=== PATIENT | female | born 1990 | race Caucasian/White ===

== ENCOUNTER 2017-06-03 13:07 | Observation (INO) ==
[2017-06-03 14:00] LABS: Basophils % 0.4 %; Eosinophils % 1.8 %; Hematocrit 40.8 % (35.3-44.9); Hemoglobin 13.3 g/dL (11.5-15.4); Immature Granulocytes % 0.3 % (0-4); Lymphocytes % 17.5 %; Mean Corpuscular HGB Conc 32.6 g/dL (31.6-35.5); Mean Corpuscular Hemoglobin 30.3 pg (28.0-33.3); Mean Corpuscular Volume 92.9 fL (83.0-100.0); Mean Platelet Volume 9.8 fL (9.4-12.4); Monocytes % 6.7 %; Platelet Count 214 K/mcL (140-400); Red Blood Count 4.39 M/mcL (3.82-4.97); Red Cell Distribution Width 12.1 % (11.5-14.5); Segmented Neutrophils % 73.3 %
[2017-06-03 14:01] LABS: Eosinophils # 0.2 K/mcL (0.0-0.6); Lymphocytes # 1.7 K/mcL (0.6-4.6); Monocytes # 0.7 K/mcL (0.0-1.3); Neutrophils # 7.1 K/mcL (1.6-8.9)
[2017-06-03 14:11] LABS: Alanine Aminotransferase 10 Units/L (0-55); Albumin 3.6 g/dL (3.5-5.0); Alkaline Phosphatase 79 Units/L (38-126); Aspartate Amino Transferase 12 Units/L (5-34); BUN/Creatinine Ratio 16 (6-26); Bilirubin,Direct 0.3 mg/dL (0.0-0.5); Bilirubin,Indirect 0.3 mg/dL (0.0-1.2); Bilirubin,Total 0.6 mg/dL (0.2-1.2); Blood Urea Nitrogen 12 mg/dL (7-20); Calcium 9.3 mg/dL (8.6-10.8); Carbon Dioxide 27 mEq/L (19-29); Chloride 103 mEq/L (98-109); Glucose 112 mg/dL (70-99); Osmolality,Calculated 287 (280-300); Potassium 3.4 mEq/L (3.5-4.5); Sodium 138 mEq/L (136-145); Total Protein 7.2 g/dL (6.0-8.3); eGFR For African Americans > 60 (> 60); eGFR For Non-African Americans > 60 (> 60)
[2017-06-03 14:12] LABS: Globulin 3.6 g/dL (2.4-3.5); Lipase 34 Units/L (8-78)
[2017-06-03 14:29] LABS: Bilirubin,Urine Negative (Negative); Blood,Urine Negative (Negative); Clarity,Urine Clear (Clear); Color,Urine Yellow (Yellow); Glucose,Urine (UA) Normal (Normal); Ketones,Urine Negative (Negative); Leukocyte Esterase,Urine Negative (Negative); Nitrite,Urine Negative (Negative); PH,Urine 7.5 pH Units (5.0-8.0); Protein,Urine Negative (Neg-Trace); Specific Gravity,Urine 1.011 (1.010-1.025); Urobilinogen,Urine Normal (Normal)
[2017-06-03] MEDS ORDERED: *HR* OxyCODONE/APAP 5/325 TABLET PO ONE (16:04)
--- NOTE | 2017-06-03 16:04 | Emergency Department Note ---
Disposition Clinical Impression: Acute appendicitis Disposition: Admitted As Inpatient Referrals: Eric Rojas MD [Primary Care Provider] - Forms: ED Satisfaction Letter, Work/School Release General Adult HPI - General Chief complaint: ED Abdominal Pain Stated complaint: RLQ pain Time Seen by Provider: 06/03/17 15:19 Source: patient Limitations: no limitations - History of Present Illness HPI Narrative: 26-year-old female reports emergency department complaining of right lower abdominal pain. The patient denies any vaginal discharge or bleeding. She has not ED and placed denies . There is no history of trauma. She has had some slight back pain as well. No blood in urine no previous history of kidney stones no previous abdominal surgery. The patient denies any fever vomiting or diarrhea. She is currently not anticoagulated. No chest pain shortness of breath or spinal pain. No bowel or bladder dysfunction or weakness in arms or legs. The patient has no history of ovarian cysts or previous pelvic infections. The patient has increasing pain over the last day or so. She describes right lower abdominal pain. Pain Scale: 5 - Related Data Home Medications Medication Instructions Recorded Confirmed ALPRAZolam [Xanax 0.5 MG Tablet] 0.5 mg PO DAILY PRN 06/03/17 06/03/17 Dextroamphetamine/Amphetamine 10 mg PO QPM 06/03/17 06/03/17 [Adderall 10 mg Tablet] Dextroamphetamine/Amphetamine 20 mg PO QAM 06/03/17 06/03/17 [Adderall 10 mg Tablet] Allergies Allergy/AdvReac Type Severity Reaction Status Date / Time No Known Allergies Allergy Verified 06/03/17 13:18 All systems ED: reviewed and negative except as stated. Past Medical History - Past Medical History Medical history: Reports: no medical history Psychiatric history: Reports: anxiety - Social History Smoking Status: Never smoker Smokeless Tobacco Status: No Alcohol use: Reports: rarely Drug use: Reports: none Physical Exam - General Limitations: no limitations General appearance: alert, in no apparent distress - Head Head exam: atraumatic, normocephalic, normal inspection - Eye Eye exam: Present: normal appearance, PERRL, EOMI. Absent: scleral icterus, conjunctival injection, nystagmus, miosis, mydriasis, periorbital swelling - ENT ENT exam: normal exam, normal oropharynx, mucous membranes moist, TM's normal bilaterally, normal external ear exam - Neck Neck exam: Present: normal inspection, full ROM, trachea midline. Absent: tenderness - Chest Chest inspection: Present: symmetric chest wall rise. Absent: tenderness - Respiratory Respiratory exam: Present: normal lung sounds bilaterally. Absent: respiratory distress, wheezes, stridor, accessory muscle use, prolonged expiratory phase - Cardiovascular Cardiovascular exam: Present: regular rate, normal rhythm, normal heart sounds - Abdominal Exam Abdominal exam: Present: soft, tenderness, tenderness at McBurney's Point. Absent: distention, guarding, rebound, rigidity, normal bowel sounds, Daniels's sign, Rovsing's sign Abdominal tenderness: Present: RLQ, moderate - Extremities Exam Extremities exam: Present: normal inspection, full ROM. Absent: tenderness, normal capillary refill, pedal edema, joint swelling, calf tenderness - Expanded Lower Extremity Exam Neurovascular/Tendon exam: Present: normal capillary refill. Absent: motor deficit, sensory deficit, tendon deficit, extremity cold to touch, pallor - Back Exam Back exam: Present: normal inspection, full ROM, CVA tenderness (R). Absent: tenderness, CVA tenderness (L), vertebral tenderness - Neurological Exam Neurological exam: Present: alert, oriented X3, CN II-XII intact. Absent: motor sensory deficit - Psychiatric Psychiatric exam: Present: normal affect, normal mood - Skin Skin exam: Present: warm, dry, intact, normal color. Absent: rash, cyanosis, diaphoresis, erythema, pallor, mottled Course Vital Signs Temperature 98 F 06/03/17 13:13 Pulse Rate 98 06/03/17 13:13 Respiratory Rate 16 06/03/17 13:13 Blood Pressure 142/97 06/03/17 13:13 O2 Sat by Pulse Oximetry 93 06/03/17 13:13 Temperature 98 F 06/03/17 13:13 Pulse Rate 98 06/03/17 13:13 Respiratory Rate 16 06/03/17 13:13 Blood Pressure 142/97 06/03/17 13:13 O2 Sat by Pulse Oximetry 06/03/17 13:13 Oxygen Delivery Oxygen Delivery Room Air Medical Decision Making - MDM Narrative Medical decision making narrative: The patient describes right lower abdominal pain, she has tenderness not area, CT scan reveals what is reported as acute appendicitis. Based on the patient's clinical history, clinical examination, and abnormal CT findings suggestive of appendicitis I have consulted the surgeon on-call who is here to evaluate the patient. - Lab Data Lab results reviewed: Yes I reviewed the patient's lab results. Result diagrams: 06/03/17 13:50 06/03/17 13:50 Lab Results 06/03/17 06/03/17 06/03/17 Range/Units 13:50 13:50 14:07 WBC 9.7 (4.3-11.1) K/mcL RBC 4.39 (3.82-4.97) M/mcL Hgb 13.3 (11.5-15.4) g/dL Hct 40.8 (35.3-44.9) % MCV 92.9 (83.0-100.0) fL MCH 30.3 (28.0-33.3) pg MCHC 32.6 (31.6-35.5) g/dL RDW 12.1 (11.5-14.5) % Plt Count 214 (140-400) K/mcL MPV 9.8 (9.4-12.4) fL Immature Gran % 0.3 (0-4) % Seg Neutrophils % 73.3 % Lymphocytes % 17.5 % Monocytes % 6.7 % Eosinophils % 1.8 % Basophils % 0.4 % Neutrophils # 7.1 (1.6-8.9) K/mcL Lymphocytes # 1.7 (0.6-4.6) K/mcL Monocytes # 0.7 (0.0-1.3) K/mcL Eosinophils # 0.2 (0.0-0.6) K/mcL Basophils # 0.0 (0.0-0.2) K/mcL Sodium 138 (136-145) mEq/L Potassium 3.4 L (3.5-4.5) mEq/L Chloride 103 (98-109) mEq/L Carbon Dioxide 27 (19-29) mEq/L BUN 12 (7-20) mg/dL Creatinine 0.76 (0.57-1.11) mg/dL Est GFR ( Amer) > 60 (> 60) Est GFR (Non-Af Amer) > 60 (> 60) BUN/Creatinine Ratio 16 (6-26) Glucose 112 H (70-99) mg/dL Calculated Osmolality 287 (280-300) Calcium 9.3 (8.6-10.8) mg/dL Total Bilirubin 0.6 (0.2-1.2) mg/dL Direct Bilirubin 0.3 (0.0-0.5) mg/dL Indirect Bilirubin 0.3 (0.0-1.2) mg/dL AST 12 (5-34) Units/L ALT 10 (0-55) Units/L Alkaline Phosphatase 79 (38-126) Units/L Serum Total Protein 7.2 (6.0-8.3) g/dL Albumin 3.6 (3.5-5.0) g/dL Globulin 3.6 H (2.4-3.5) g/dL Albumin/Globulin Ratio 1.0 L (1.1-2.2) Lipase 34 (8-78) Units/L Urine Color Yellow (Yellow) Urine Clarity Clear (Clear) Urine pH 7.5 (5.0-8.0) pH Units Ur Specific [place] 1.011 (1.010-1.025) Urine Protein Negative (Neg-Trace) mg/dL Urine Glucose (UA) Normal (Normal) mg/dL Urine Ketones Negative (Negative) mg/dL Urine Blood Negative (Negative) Urine Nitrite Negative (Negative) Urine Bilirubin Negative (Negative) Urine Urobilinogen Normal (Normal) mg/dL Ur Leukocyte Esterase Negative (Negative) Ur Culture Indicated? NO (NO) Urine Test (Negative) 06/03/17 Range/Units 14:07 WBC (4.3-11.1) K/mcL RBC (3.82-4.97) M/mcL Hgb (11.5-15.4) g/dL Hct (35.3-44.9) % MCV (83.0-100.0) fL MCH (28.0-33.3) pg MCHC (31.6-35.5) g/dL RDW (11.5-14.5) % Plt Count (140-400) K/mcL MPV (9.4-12.4) fL Immature Gran % (0-4) % Seg Neutrophils % % Lymphocytes % % Monocytes % % Eosinophils % % Basophils % % Neutrophils # (1.6-8.9) K/mcL Lymphocytes # (0.6-4.6) K/mcL Monocytes # (0.0-1.3) K/mcL Eosinophils # (0.0-0.6) K/mcL Basophils # (0.0-0.2) K/mcL Sodium (136-145) mEq/L Potassium (3.5-4.5) mEq/L Chloride (98-109) mEq/L Carbon Dioxide (19-29) mEq/L BUN (7-20) mg/dL Creatinine (0.57-1.11) mg/dL Est GFR ( Amer) (> 60) Est GFR (Non-Af Amer) (> 60) BUN/Creatinine Ratio (6-26) Glucose (70-99) mg/dL Calculated Osmolality (280-300) Calcium (8.6-10.8) mg/dL Total Bilirubin (0.2-1.2) mg/dL Direct Bilirubin (0.0-0.5) mg/dL Indirect Bilirubin (0.0-1.2) mg/dL AST (5-34) Units/L ALT (0-55) Units/L Alkaline Phosphatase (38-126) Units/L Serum Total Protein (6.0-8.3) g/dL Albumin (3.5-5.0) g/dL Globulin (2.4-3.5) g/dL Albumin/Globulin Ratio (1.1-2.2) Lipase (8-78) Units/L Urine Color (Yellow) Urine Clarity (Clear) Urine pH (5.0-8.0) pH Units Ur Specific [place] (1.010-1.025) Urine Protein (Neg-Trace) mg/dL Urine Glucose (UA) (Normal) mg/dL Urine Ketones (Negative) mg/dL Urine Blood (Negative) Urine Nitrite (Negative) Urine Bilirubin (Negative) Urine Urobilinogen (Normal) mg/dL Ur Leukocyte Esterase (Negative) Ur Culture Indicated? (NO) Urine Test Negative (Negative) - Radiology Data Radiology results reviewed: Yes I reviewed the patient's radiology results.
--- NOTE | 2017-06-03 19:00 | General Surg History&Physical ---
Date of Encounter: 06/03/17 Time of Encounter: 18:57 Assessment and Plan (1) Acute appendicitis Current Visit: Yes Status: Acute 26yof with one day history of worsening back pain with TTP at McBurney's point and CT demonstrating inflammatory reaction at the appendix, consistent with acute appendicitis; - NPO -IVF: D5LR @ 125 - abx: zosyn - consent for lap appy - admit pain control: percocet, tramadol dvt prophylaxis activity as tolerated diet as tolerated after surgery resume home meds vitals, I/Os q4hrs The assessment and plan as outlined above was discussed with the patient and/or family members who expressed understanding and agreement. All questions were answered. Qualifiers: Acute appendicitis type: with localized peritonitis Qualified Code(s): K35.3 - Acute appendicitis with localized peritonitis (2) Right lower quadrant abdominal pain Current Visit: Yes Status: Acute see plan above The assessment and plan as outlined above was discussed with the patient and/or family members who expressed understanding and agreement. All questions were answered. (3) Back pain Current Visit: Yes Status: Acute likely due to positioning of appendix; see plan above The assessment and plan as outlined above was discussed with the patient and/or family members who expressed understanding and agreement. All questions were answered. Qualifiers: Back pain location: low back pain Chronicity: acute Back pain laterality : right Sciatica presence: without sciatica Qualified Code(s): M54.5 - Low back pain History of Present Illness Chief complaint: back pain HPI: Ms. Mendoza is a 26 year old female with a PMH significant for anxiety and ADHD who presents with a 1 day history of lower, right sided back pain. The pain is non radiating with no identifiable alleviating or exacerbating factors. No associated fevers chills or nausea or vomiting. The patient is still able to tolerate a diet and bowel function. Due to the worsening pain the patient decided to present to the emergency room for further evaluation. Per the medicine department staff the patient was tender on the right side of her abdomen which prompted a concern for acute appendicitis. Surgery was counseled for further management recommendations. Past Med Surg Social Fam HX - Past Medical History Medical history: no medical history Psychiatric history: anxiety, ADHD - Past Surgical History Surgical History: other (Surgery on Left arm due to fracture) - Social History Smoking Status: Never smoker Smokeless Tobacco Status: No Alcohol use: rarely Drug use: none Current living situation: Home Activity Level: Independent ambulation - Additional Family History Additional family history: non contributory Medications and Allergies ALPRAZolam [Xanax 0.5 MG Tablet] 0.5 mg PO DAILY PRN 06/03/17 [History] Dextroamphetamine/Amphetamine [Adderall 10 mg Tablet] 10 mg PO QPM 06/03/17 [ History] Dextroamphetamine/Amphetamine [Adderall 10 mg Tablet] 20 mg PO QAM 06/03/17 [ History] 3 Allergy/AdvReac Type Severity Reaction Status Date / Time No Known Allergies Allergy Verified 06/03/17 13:18 Review of Systems All systems PM: reviewed and no additional remarkable complaints except as stated All systems PM: A 10-system review of systems was performed and is negative for pertinent findings except as documented above in the HPI. General Surgery Exam Initial Vital Signs Temp Pulse Resp BP Pulse Ox 98 F 98 16 142/97 93 06/03/17 13:13 06/03/17 13:13 06/03/17 13:13 06/03/17 13:13 06/03/17 13:13 - General physical appearance well developed, well nourished, no distress - Eyes other (no slceral icterus) - Respiratory normal expansion, normal respiratory effort (equal chest wall expansion), clear to auscultation, other (no audible wheezes) - Cardiovascular Cardiovascular exam: Present: RRR - Abdomen Abdomen general surgery: Present: soft, tender Abdominal Tenderness: Present: RLQ Hernia: Present: none - Integumentary Integumentary general surgery: Present: warm and dry - Neurologic Present: CN 2-12 grossly intact - Musculoskeletal Present: normal gait, normal posture, other (FROM in UE/LE bilaterally) - Psychiatric Psychiatric general surgery: Present: A&Ox3, appropriate, speech is normal, aggessive Results - Labs 06/03/17 13:50 06/03/17 13:50 Abnormal lab results Potassium 3.4 mEq/L (3.5-4.5) L 06/03/17 13:50 Glucose 112 mg/dL (70-99) H 06/03/17 13:50 Globulin 3.6 g/dL (2.4-3.5) H 06/03/17 13:50 Albumin/Globulin Ratio 1.0 (1.1-2.2) L 06/03/17 13:50 Diabetes panel 06/03/17 Range/Units 13:50 Sodium 138 (136-145) mEq/L Potassium 3.4 L (3.5-4.5) mEq/L Chloride 103 (98-109) mEq/L Carbon Dioxide 27 (19-29) mEq/L BUN 12 (7-20) mg/dL Creatinine 0.76 (0.57-1.11) mg/dL Glucose 112 H (70-99) mg/dL Calcium 9.3 (8.6-10.8) mg/dL AST 12 (5-34) Units/L ALT 10 (0-55) Units/L Alkaline Phosphatase 79 (38-126) Units/L Albumin 3.6 (3.5-5.0) g/dL Calcium panel 06/03/17 Range/Units 13:50 Calcium 9.3 (8.6-10.8) mg/dL Albumin 3.6 (3.5-5.0) g/dL Pituitary panel 06/03/17 Range/Units 13:50 Sodium 138 (136-145) mEq/L Potassium 3.4 L (3.5-4.5) mEq/L Chloride 103 (98-109) mEq/L Carbon Dioxide 27 (19-29) mEq/L BUN 12 (7-20) mg/dL Creatinine 0.76 (0.57-1.11) mg/dL Glucose 112 H (70-99) mg/dL Calcium 9.3 (8.6-10.8) mg/dL Adrenal panel 06/03/17 Range/Units 13:50 Sodium 138 (136-145) mEq/L Potassium 3.4 L (3.5-4.5) mEq/L Chloride 103 (98-109) mEq/L Carbon Dioxide 27 (19-29) mEq/L BUN 12 (7-20) mg/dL Creatinine 0.76 (0.57-1.11) mg/dL Glucose 112 H (70-99) mg/dL Calcium 9.3 (8.6-10.8) mg/dL Total Bilirubin 0.6 (0.2-1.2) mg/dL AST 12 (5-34) Units/L ALT 10 (0-55) Units/L Alkaline Phosphatase 79 (38-126) Units/L Albumin 3.6 (3.5-5.0) g/dL All other labs normal. - Imaging CT scan - abdomen: report reviewed, image reviewed CT scan - pelvis: report reviewed, image reviewed (inflammation at appendix, primarily at the tip; no abscess, no free air; appears to be retrocecal)
--- NOTE | 2017-06-03 19:11 | Anesthesia Evaluation PreOp ---
Date of Encounter: 06/03/17 Time of Encounter: 19:20 - Past History Planned Operation: Lap Appendectomy Cardiac History: Denies any Significant Hx Pulmonary History: Denies Any Significant HX HUMANITIES PROFESSOR History: Denies Any Significant HX Other Medical History: Other (Anxiety ADDH) Anesthesia History: No Prior Anesthetic Complications : No Test: Negative Alcohol Use: rarely Drug use: none Medications and Allergies ALPRAZolam [Xanax 0.5 MG Tablet] 0.5 mg PO DAILY PRN 06/03/17 [History] Dextroamphetamine/Amphetamine [Adderall 10 mg Tablet] 10 mg PO QPM 06/03/17 [ History] Dextroamphetamine/Amphetamine [Adderall 10 mg Tablet] 20 mg PO QAM 06/03/17 [ History] 3 Allergy/AdvReac Type Severity Reaction Status Date / Time No Known Allergies Allergy Verified 06/03/17 13:18 - Meds/Allergy Pre-op Review Medications Reviewed: Yes Allergies Reviewed: Yes Beta Blockers on Current Med List: No Anesthesia Results - Labs 06/03/17 13:50 06/03/17 13:50 Anesthesia Exam O2 Sat Height 1.75 m Weight 78.925 kg O2 Sat by Pulse Oximetry 93 Vital Signs Temp Pulse Resp BP Pulse Ox 98 F 98 16 142/97 93 06/03/17 13:13 06/03/17 13:13 06/03/17 13:13 06/03/17 13:13 06/03/17 13:13 Height: 5'9 Weight: 174 lbs NPO (# of Hours): MN Pain Scale: 0 - HEENT Pupil (Motor): Pupils equal, EOMI Mallampati: II Teeth: Normal Oral Opening: Greater than 3 - HUMANITIES PROFESSOR LOC: Oriented HUMANITIES PROFESSOR Motor: Normal RUE, Normal LUE, Normal RLE, Normal LLE, Normal Face HUMANITIES PROFESSOR Sensory: Normal: RUE, LUE, RLE, LLE, Face - Cardiac Rhythm: Regular Murmur: None JVD: No Carotid Bruit: No - Pulmonary Breath Sounds: bilateral Clear Respiratory Effort: Symmetrical Anesthesia Assess/Plan ASA Score: 2 Modified Massiel Scale for Level of Consciousness: Cooperative, oriented, and tranquil Anesthetic Plan: General Monitoring Plan: Standard Monitors Recovery Plan: PACU (Discussed GA, agrees to proceed)
[2017-06-03] MEDS ORDERED: D5% in Lactated Ringers 1,000 ML IVC SCH ×4 (19:15→22:15)
[2017-06-03] MEDS ORDERED: Acetaminophen IV 1,000 MG/100 ML INFUS..BTL ONE (19:27)
[2017-06-03] MEDS ORDERED: Famotidine 20 MG/2 ML VIAL ONE (19:28)
[2017-06-03] MEDS ORDERED: Lidocaine -MPF 2% 2 ML VIAL ONE (19:31)
[2017-06-03] MEDS ORDERED: *HR* Midazolam HCl 2 MG/2 ML VIAL ONE (19:31)
[2017-06-03] MEDS ORDERED: *HR* FentaNYL (PF) 100 MCG/2 ML VIAL ONE (19:31)
[2017-06-03] MEDS ORDERED: Lidocaine -MPF 4% 5 ML AMPUL ONE (19:31)
[2017-06-03] MEDS ORDERED: Ondansetron 4 MG/2 ML VIAL ONE (19:31)
[2017-06-03] MEDS ORDERED: *HR* Propofol 200 MG/20 ML VIAL IVP ONE ×2 (19:31→21:32)
[2017-06-03] MEDS ORDERED: Dexamethasone 4 MG/ML VIAL ONE (19:31)
[2017-06-03] MEDS ORDERED: *HR* Succinylcholine 200 MG/10 ML VIAL IVP ONE (19:31)
[2017-06-03] MEDS ORDERED: *HR* Rocuronium Bromide 50 MG/5 ML VIAL ONE (19:31)
[2017-06-03] MEDS ORDERED: Piperacillin/Tazobactam 3.375 GM in D5% in Water (Mini-Bag+) 100 ML IVPB ONE (20:22)
[2017-06-03] MEDS ORDERED: Ondansetron 4 MG/2 ML VIAL IVP ONE (20:47)
[2017-06-03] MEDS ORDERED: Ketorolac 30 MG/ML VIAL ONE (20:51)
[2017-06-03] MEDS ORDERED: Piperacillin/Tazobactam 3.375 GM in D5% in Water (Mini-Bag+) 100 ML IVPB SCH ×2 (21:00→23:00)
[2017-06-03] MEDS ORDERED: Neostigmine Methylsulfate 3 MG/3 ML SYRINGE ONE (21:35)
--- NOTE | 2017-06-03 22:08 | General Surgery Procedure Note ---
Date of procedure: 06/03/17 Pre-op diagnosis: acute appendicitis Post-op diagnosis: same Procedure: Laparoscopic appendectomy Complications: none Findings: acute inflammed appendix, non perforated Implants: none Anesthesia: PARDEEPA Surgeon: Huey Molina Insurance Underwriting Assistant: Adwoa Ordaz Estimated blood loss (cc): 20 Pathology: other (sent) Condition: stable Disposition: PACU
[2017-06-03] MEDS ORDERED: *HR* HYDROmorphone (PF) 1 MG/ML SYRINGE ONE (22:14)
[2017-06-03] MEDS: *HR* HYDROmorphone (PF) 1 MG/ML SYRINGE IVP PRN ×4 (22:16→22:41)
--- NOTE | 2017-06-03 22:19 | Operative Note ---
Date of procedure: 06/03/17 Pre-op diagnosis: acute appendicitis Post-op diagnosis: same Procedure: laparoscopic appendectomy Implants: none Complications: none Anesthesia: GETA Local Anesthetics: 0.5% Sensorcaine HCL SubQ (cc) (30cc) Surgeon: Huey Molina Monorail Operator: Adwoa Ordaz Estimated blood loss (cc): 20 Specimen: appendix Condition: stable Disposition: PACU Procedure in Detail: Indications: This is a 26-year-old female with a history of anxiety and ADHD who presents with a 1 day history of worsening abdominal pain. no associated nausea, vomiting, fevers, or chills. CT scan which was reviewed and interpreted by myself indicated inflammation around the appendix consistent with acute appendicitis. The decision was made to take the patient to the operating room. I discussed with the patient the risks and benefits of the procedure as well as alternatives and she was in agreement with operative intervention. Procedure: The patient was brought into the operating room suite. The patient was placed in the supine position. Mechanical DVT prophylaxis was initiated. The patient underwent smooth induction of general endotracheal anesthesia. The patient was prepped and draped in the usual fashion. Preoperative antibiotics (Zosyn) were given. A timeout was held identifying the correct patient, pathology, and procedure. Everyone was in agreement and i began THE procedure. I started by creating a supraumbilical incision and via open Mar technique entered into the abdomen. I then used a Vicryl suture on a UR 6 needle in a [id number] fashion to reapproximate but not close the fascia. I then inserted the 10 trocar followed by the camera to visualize the intraabdominal cavity. It should be noted that there were no hepatic lesions nor pelvic fluid. I then created a 5 mm incision suprapubically and inserted the 5 mm trocar under direct visualization. Roughly 1 handbreadth lateral to the umbilical incision I created another 5 mm incision and inserted another 5 mm trocar under direct visualization. I then inserted the nontraumatic instruments into the 5 mm ports and began the procedure. I was able to identify the tinea coli coalescing at the base of the cecum to identify the appendix. Using the nontraumatic grasper I was able to grasp the appendix and then using the [place] dissector was able to create a mesenteric window. It should be stated that the midportion of the appendix was densely adhered to the floor of the abdomen. Using laparoscopic scissors, I sharply lysed adhesions to allow enough laxity to bring the entire appendix into view. Despite this, there were still dense adhesions to the appendix and its mesentery. I then inserted the nontraumatic grasper into the same mesenteric window to widen it. I then grasped the appendix and switched from the 10 mm camera to the 5 mm camera so that we can insert the stapler through the umbilical port. The teeth of the stapler through the mesenteric window. It should be stated that the stapler was a 45 mm bowel load stapler. It was positioned at the base of the appendix and I was able to confirm under direct visualization that the teeth contained no other structures such as the cecum. I then fired the stapler and resected the appendix from the base of the cecum. I then loaded up a vascular load stapler and then in the similar fashion did fire across the mesentery. I used approximately 4 loads to come across the mesentery because it was thickened. I also used electrocautery to completely excise the mesentery because there were too many erich along the staple line to allow for usage of the stapler. In addition, while sharply dissecting the adhesions from the abdominal wall, I did cause bleeding from the mesentery, but I was able to control it with multiple 5mm clips (~5 in total). It should be reiterated that the bleeding did stop. I then inserted the Endo Catch bag to retrieve the specimen which was intact upon retrieval. I then switched back to the 10 mm camera and inserted the nontraumatic grasper as well as a suction- recovery manager into the 5 mm ports. And under direct visualization I was able to appreciate the staple line of the mesoappendix as well as the staple line of the base of the cecum. There was no obvious leaking nor bleeding. The pelvis did not have any collection of fluid. There was no damage to the bowel. I then concluded the procedure, turned off the insufflation, removed the trochars under direct visualization, and then closed the umbilical fascia using the Vicryl suture that was placed at the beginning. I then closed all incisions with interrupted 4-0 Monocryl. And then sealed with Dermabond. It should be stated that I did use 0.5% Marcaine (30cc) as a local anesthetic on all incisions. The patient tolerated the procedure well and did go back to PACU in stable condition.
--- NOTE | 2017-06-03 22:48 | Anesthesia Evaluation Post Op ---
Date of Encounter: 06/03/17 Time of Encounter: 22:45 - Vital Signs Vital Signs: Vital Signs/O2 Sat/Glucose, Most Current Temp Pulse Resp BP Pulse Ox 06/03/17 22:35 64 18 124/88 100 06/03/17 22:25 98.1 F 72 18 130/85 100 06/03/17 22:15 76 16 128/92 99 06/03/17 22:05 87 14 127/87 99 06/03/17 21:55 97.7 F 129 16 135/97 98 06/03/17 19:13 20 0/0 - Lungs Lungs: Clear Ascult./Percussion - Airway Airway: Non-obstructed - Cardiovascular Regular Rate - Mental Status Mental Status: Alert & Oriented, Answers Appropriately - Pain Pain Scale: 1 - Nausea Vomiting Nausea Vomiting: Not Present - Hydration Hydration: Ice chips - Discharge PostOp Status: Transfer Patient to floor
[2017-06-03] MEDS ORDERED: Ibuprofen 400 MG TABLET PO PRN (23:33)
[2017-06-03] MEDS ORDERED: D5% in 0.45% NACL 1,000 ML IVC SCH (23:33)
[2017-06-03] MEDS ORDERED: Naloxone 0.4 MG/ML INJ IVP PRN (23:33)
[2017-06-04] MEDS: *HR* HYDROcodone/Acet 5/325 mg TABLET PO PRN ×2 (01:05→10:28)
[2017-06-04] MEDS: Ondansetron 4 MG/2 ML VIAL IVP PRN ×2 (01:05→07:10)
[2017-06-04] MEDS: *HR* Morphine 2 MG/ML SYRINGE IVP PRN ×2 (03:29→07:55)
[2017-06-04] MEDS ORDERED: Piperacillin/Tazobactam 3.375 GM in D5% in Water (Mini-Bag+) 100 ML IVPB SCH ×4 (04:00)
[2017-06-04 05:14] LABS: Eosinophils % 0.1 %; Hematocrit 31.7 % (35.3-44.9); Immature Granulocytes % 0.3 % (0-4); Lymphocytes % 5.4 %; Mean Corpuscular HGB Conc 33.4 g/dL (31.6-35.5); Mean Corpuscular Hemoglobin 31.5 pg (28.0-33.3); Mean Corpuscular Volume 94.3 fL (83.0-100.0); Mean Platelet Volume 10.6 fL (9.4-12.4); Monocytes % 5.6 %; Platelet Count 227 K/mcL (140-400); Red Blood Count 3.36 M/mcL (3.82-4.97); Red Cell Distribution Width 12.1 % (11.5-14.5); Segmented Neutrophils % 88.4 %
[2017-06-04 05:15] LABS: Basophils % 0.2 %; Lymphocytes # 0.7 K/mcL (0.6-4.6); Monocytes # 0.7 K/mcL (0.0-1.3); Neutrophils # 11.6 K/mcL (1.6-8.9)
[2017-06-04 05:24] LABS: Hemoglobin 10.6 g/dL (11.5-15.4)
[2017-06-04] MEDS ORDERED: *HR* Enoxaparin 40 MG/0.4 ML SYRINGE SQ SCH (06:00)
[2017-06-04] MEDS ORDERED: Ondansetron 4 MG/2 ML VIAL IVP STA (09:39)
--- NOTE | 2017-06-04 09:45 | Discharge Summary ---
Date of Encounter: 06/04/17 Time of Encounter: 09:30 - Discharge Diagnosis (1) Acute appendicitis Priority: Primary Status: Resolved Qualifiers: Acute appendicitis type: with localized peritonitis Qualified Code(s): K35.3 - Acute appendicitis with localized peritonitis - Discharge Medications Prescriptions: HYDROcodone/Acet 5/325 mg [Larned 5-325 mg] 1 tab PO Q4HR PRN #42 tablet PRN Reason: Moderate Pain (4-6) Ondansetron ODT [Zofran ODT] 4 mg SL Q4HR #30 tab.rapdis Ibuprofen [Motrin] 800 mg PO Q8HR #60 tablet Docusate [Colace] 100 mg PO BID #60 capsule Home Medications: ALPRAZolam [Xanax 0.5 MG Tablet] 0.5 mg PO DAILY PRN 06/03/17 [History] Dextroamphetamine/Amphetamine [Adderall 10 mg Tablet] 10 mg PO QPM 06/03/17 [ History] Dextroamphetamine/Amphetamine [Adderall 10 mg Tablet] 20 mg PO QAM 06/03/17 [ History] Docusate [Colace] 100 mg PO BID #60 capsule 06/04/17 [Rx] HYDROcodone/Acet 5/325 mg [Larned 5-325 mg] 1 tab PO Q4HR PRN #42 tablet [Rx] Ibuprofen [Motrin] 800 mg PO Q8HR #60 tablet 06/04/17 [Rx] Ondansetron ODT [Zofran ODT] 4 mg SL Q4HR #30 tab.rapdis 06/04/17 [Rx] Allergies/Adverse Reactions: 3 Allergy/AdvReac Type Severity Reaction Status Date / Time No Known Allergies Allergy Verified 06/03/17 13:18 General Surgery Exam Initial Vital Signs Temp Pulse Resp BP Pulse Ox 98 F 98 16 142/97 93 06/03/17 13:13 06/03/17 13:13 06/03/17 13:13 06/03/17 13:13 06/03/17 13:13 - General physical appearance well developed, well nourished, no distress - Neck no masses, no bruits, trachea midline, no lymphadectomy, no venous distension - Respiratory normal expansion, normal respiratory effort, clear to percussion, clear to auscultation - Cardiovascular Cardiovascular exam: Present: RRR, 15, 16 - Abdomen Abdomen general surgery: Present: bowel sounds present, soft, tender (Expected postoperative) - Incision Incision: Present: clean and dry, intact - Integumentary Integumentary general surgery: Present: warm and dry, no abnormal pigmentation - Neurologic Present: CN 2-12 grossly intact, normal coordination, normal sensation - Musculoskeletal Present: normal gait, normal posture Date of admission: 06/03/17 22:13 Primary care physician: Eric Rojas MD Discharging clinician: Huey Ricci) Anticipated date of discharge: 06/04/17 - Patient Status Disposition: Home, Self-Care Condition: Good Functional capacity at discharge: independent ambulation Overall status at discharge: patient is progressing back to baseline - Discharge Instructions Instructions: Laparoscopic Appendectomy (DC) Follow Up With: Eric Rojas MD [Primary Care Provider] - Huey Molina MD [Non-Partnered Physician] - 06/17/17 1:15 pm Forms: Inpatient Work/School Release Additional Instructions: -No lifting, pulling, pushing, greater than 15 pounds for 2 weeks. -Okay to climb stairs. -May resume driving when you have been off narcotics for 24 hours and you are safe to react in the car. -You may shower beginning today. Wash the incisions daily with soap and water and pat dry. -No swimming, tub bath, or soaking for 2 weeks. -Return to the office for follow-up as directed. -Report any increase in discomfort or any new fevers greater than 101.5 degrees and signs of infection such as redness, swelling, or drainage from the incisions. -Take the stool softener while on narcotics. You may hold for loose stool. -Take ibuprofen every 8 hours for the 1st 24 to 48 hours, and then as needed. You may take narcotics for breakthrough pain, do not take any extra Tylenol if you are using the hydrocodone with acetaminophen. - Diet and Activity Activity: increase activity as tolerated Diet: advance to your usual diet - Hospital Course Hospital course: Ms. Mendoza is a 26 year old female who presented on 06/03/2017 for complaints of right lower quadrant and low back pain, TTP at McBurney's point and CT demonstrating inflammatory reaction at the appendix. She was taken to the operating room where she underwent a laparoscopic appendectomy without complication. She is ambulating without difficulty. She is tolerating a full liquid diet without nausea or vomiting. She is passing gas from her bottom. She states her discomfort is controlled at the current regimen. She is afebrile in her vital signs are stable. We will begin discharge planning and the next 24 to 48 hours depending her ability to avoid. - Time Spent with Patient Total time spent providing and/or coordinating discharge services: Labs on day of discharge: Labs from last 24 hours 06/04/17 04:05 WBC 13.1 H RBC 3.36 L Hgb 10.6 L D Hct 31.7 L MCV 94.3 MCH 31.5 MCHC 33.4 RDW 12.1 Plt Count 227 MPV 10.6 Immature Gran % 0.3 Seg Neutrophils % 88.4 Lymphocytes % 5.4 Monocytes % 5.6 Eosinophils % 0.1 Basophils % 0.2 Neutrophils # 11.6 H Lymphocytes # 0.7 Monocytes # 0.7 Eosinophils # 0.0 Basophils # 0.0
[2017-06-04] MEDS ORDERED: Acetaminophen IV 1,000 MG/100 ML INFUS..BTL IVPB ONE (11:53)
[2017-06-04] MEDS ORDERED: *HR* OxyCODONE/APAP 10/325 TABLET PO PRN (11:54)
[2017-06-04] MEDS ORDERED: Ketorolac 15 MG/ML VIAL IVP STA (11:56)
[2017-06-04] MEDS ORDERED: *HR* Morphine 2 MG/ML SYRINGE IVP PRN (11:57)
[2017-06-04] MEDS ORDERED: Acetaminophen IV 500 MG/50 ML INFUS..BTL IVPB STA (11:59)
--- NOTE | 2017-06-04 12:23 | Event Note ---
Date of Encounter: 06/04/17 Time of Encounter: 12:00 Spoke with bedside RN regarding pt's c/o inability to urinate and discomfort. Pt has been up and ambulating in halls and requests regular diet. Bladder scan with 565 ml. Straight cath x1 now. Medicate for discomfort and give flomax as previously ordered. Will re-evaluate this afternoon. If she remains unable to void and/or discomfort is not managed after medication administration, will keep for observation.
[2017-06-04] MEDS ORDERED: Ibuprofen 800 MG TABLET PO SCH ×2 (16:00)
[2017-06-04 18:57] VITALS: BP 124/72
[2017-06-05] MEDS ORDERED: ALPRAZolam 0.5 MG TABLET PO SCH (18:43)
== END 2017-06-04 19:30 | disposition home or self-care (01) ==
LOC: EMEROO 13:07 → 3ANU 13:07 → EMEROO 19:15 → UNDODISOB 22:14
PROVIDERS: ADMIT Surgery; ATTEND Surgery